=== PATIENT | female | born 1945 | race Caucasian/White ===

== ENCOUNTER 2018-01-24 08:23 | Outpatient (CLI) | payer MEDICARE, BC ==
--- NOTE | 2018-01-24 09:56 | CT ---
CT LUMBAR SPINE WITHOUT CONTRAST: History Low back pain for 1 week. COMPARISON: None. FINDINGS: The aortic contour is nonaneurysmal. No free fluid within the pelvis. No hydronephrosis. No retrop eritoneal adenopathy. Mild straightening of the lumbar spine. No acute fracture. No malalignment. Mild degenerative disease at SI joints. There is degenerative narrowing of L3-4, L4-5 intraspinous space with sclerosis of the cortices and s mall erosions. Levels are as follows: T12-l1: Mild facet arthrosis. Mild degenerative disk space height loss. Low-grade circumferential disk bulge. The spinal canal and neural foramen are patent. L2-3: Moderate degenerative disk space height loss. Mild ligamentum flavum hypertrophy. Circumfere ntial disk bulge as well as a superimposed right paracentral and subforaminal posterior disk-osteophy te complex. Moderate right and mild left neural foraminal narrowing. The spinal canal measures appr oximately 9 mm. L3-4: Moderate degenerative disk space height loss. Moderate facet arthrosis. Circumferential disk bulge with posterior disk-osteophyte complex. Moderate bilateral neural foraminal narrowing. Mild increased posterior dural fat. The spinal canal measures approximately 6 mm. L4-5: Moderate degenerative disk space height loss. Circumferential disk bulge. Ligamentum flavum hypertrophy. Moderate facet arthrosis. This causes moderate bilateral neural foraminal narrowing, w orse on the right. The spinal canal at this level measures approximately 7 mm. L5-S1: Severe degenerative disk space height loss. End plate sclerosis. Posterior disk-osteophyte complex. Moderate bilateral neural foraminal narrowing. IMPRESSION: Moderate spondylosis as described above, worse at L3-4, L4-5, and L5-S1. No acute fracture. No [place] lignment. POS: [facility]
== END 2018-01-24 08:24 | disposition home or self-care (01) ==
LOC: SCSCT 08:23
PROVIDERS: ATTEND Specialist
DX: M54.9 Dorsalgia, unspecified (principal); M47.896 Other spondylosis, lumbar region
CPT/HCPCS: 72131

== ENCOUNTER 2018-05-25 10:49 | Outpatient (CLI) | payer MEDICARE, BC | END 2018-05-25 10:50 | disposition home or self-care (01) | LOC: BICMAMMO 10:49 | PROVIDERS: ATTEND Specialist | DX: Z12.31 Encounter for screening mammogram for malignant neoplasm of breast (principal); Z13.820 Encounter for screening for osteoporosis; R92.1 Mammographic calcification found on diagnostic imaging of breast | CPT/HCPCS: 77063; 77067; 77080 ==

== ENCOUNTER 2018-08-30 10:29 | Outpatient (CLI) | payer MEDICARE, BC ==
--- NOTE | 2018-08-30 12:34 | RAD ---
LUMBAR SPINE THREE VIEWS: History: 73-year-old female with history of lumbar radiculopathy. M54.16 with low back pain radiating down rig ht leg. FINDINGS: Flexion, extension, and neutral upright lateral views of the lumbar spine is performed. There is gene ralized disc desiccation changes and disc osteophytosis, particularly at L3-4 and L5-S1. No abnormal translation between flexion and extension. No evidence for acute compression fracture. IMPRESSION: Lumbar spondylosis particularly at L3-4 and L5-S1. No abnormal translation. POS: [facility]
--- NOTE | 2018-08-30 12:38 | MRI ---
LUMBAR SPINE MRI WITHOUT IV CONTRAST: History: 73-year-old female with history of M54.16, lumbar radiculopathy, low back pain with radiation down ri ght leg. FINDINGS: There is a somewhat prominent heterogeneous appearance of the marrow, evidence for fairly extensive r ed marrow reconversion. The conus medullaris region is unremarkable terminating at L1-2. L1-2: There is disc desiccation change but no canal, lateral recess, or foraminal stenosis. L2-3: There is diffuse disc bulge with ligament and facet hypertrophic changes with moderate central canal and lateral recess stenosis and mild bilateral foraminal stenosis. L3-4: Moderate central canal and lateral recess stenosis and bilateral foraminal stenosis. L4-5: Moderate central canal and lateral recess stenosis and moderate left foraminal stenosis and mil d right foraminal stenosis. L5-S1: Prominent central protrusion with mild indention of the ventral thecal sac and mild to moderat e bilateral foraminal stenosis. 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 Multilevel variable sever ity canal, lateral recess and foraminal stenosis as above. Mild mix, including some type I endplate c hanges at L5-S1. POS: [facility]
== END 2018-08-30 10:30 | disposition home or self-care (01) ==
LOC: TBSIIMAG 10:29
PROVIDERS: ATTEND Neurological Surgery
DX: M47.26 Other spondylosis with radiculopathy, lumbar region (principal); M47.27 Other spondylosis with radiculopathy, lumbosacral region; M48.061 Spinal stenosis, lumbar region without neurogenic claudication; M99.83 Other biomechanical lesions of lumbar region
CPT/HCPCS: 72100; 72148

== ENCOUNTER 2020-08-09 15:42 | Outpatient (CLI) | payer MEDICARE, BC ==
--- NOTE | 2020-08-09 16:42 | MMO ---
Bilateral MAMMO Bilat Screen [facility]. CLINICAL HISTORY: Patient is 75 years old and is seen for screening. The patient has the following family history of breast cancer: maternal aunt, malignant (generic). The patient has no personal history of cancer. VIEWS: The views performed were: bilateral craniocaudal with tomosynthesis and bilateral mediolateral oblique with tomosynthesis. FILMS COMPARED: The present examination has been compared to prior imaging studies performed at [facility] on 01/11/2013, 01/25/2015, 02/27/2016 and 05/25/2018. This study has been interpreted with the assistance of computer-aided detection. MAMMOGRAM FINDINGS: There are scattered fibroglandular densities. Benign calcifications are noted bilaterally. There are no suspicious masses, suspicious calcifications, or new areas of architectural distortion. IMPRESSION: THERE IS NO MAMMOGRAPHIC EVIDENCE OF MALIGNANCY. A ROUTINE FOLLOW-UP MAMMOGRAM IN 1 YEAR IS RECOMMENDED. THE RESULTS OF THIS EXAM WERE SENT TO THE PATIENT. ACR BI-RADS Category 2 - Benign finding MAMMOGRAPHY NOTE: 1. A negative mammogram report should not delay a biopsy if a dominant of clinically suspicious mass is present. 2. Approximately 10% to 15% of breast cancers are not detected by mammography. 3. Adenosis and dense breasts may obscure an underlying neoplasm. Reported by: RICKI CISNEROS MD Electonically Signed: [id number]
== END 2020-08-09 15:43 | disposition home or self-care (01) ==
LOC: BICMAMMO 15:42
PROVIDERS: ATTEND Specialist
DX: Z12.31 Encounter for screening mammogram for malignant neoplasm of breast (principal); Z80.3 Family history of malignant neoplasm of breast
CPT/HCPCS: 77063; 77067

== ENCOUNTER 2020-09-11 12:27 | Outpatient (CLI) | payer MEDICARE, BC ==
--- NOTE | 2020-09-11 13:40 | ULT ---
SOFT TISSUE ULTRASOUND: 09/11/20 INDICATIONS: Prominence and tenderness at the xiphoid process of the sternum. FINDINGS/IMPRESSION: Directed ultrasound of this area is performed. No sonographic abnormality identified. The xiphoid pro cess is noted. This is tender to palpation. Recommend clinical correlation. If there is clinical conc heidy of abnormality at the xiphoid process, CT chest could be performed to further characterize. POS: [facility]
== END 2020-09-11 12:28 | disposition home or self-care (01) ==
LOC: BICULT 12:27
PROVIDERS: ATTEND Specialist
DX: R22.2 Localized swelling, mass and lump, trunk (principal)

== ENCOUNTER 2021-02-11 16:08 | Inpatient (IN) | payer MEDICARE, BC ==
[2021-02-11] MEDS ORDERED: Morphine 4 MG/ML VIAL ONE (17:09)
[2021-02-11] MEDS ORDERED: Ondansetron PF 4 MG/2 ML Vial ONE (17:09)
[2021-02-11 17:15] LABS: #Eosinphils 0.1 thou/uL (0.0-0.7); #Lymphocytes 0.9 thou/uL (1.20-3.40); #Monocytes 0.8 thou/uL (0.11-0.59); #Neutrophils 6.1 thou/uL (1.40-6.50); %Basophils 0.2 % (0.0-1.0); %Eosinophils 0.9 % (0.0-10.0); %Lymphocytes 11.2 % (21.0-51.0); %Monocytes 9.9 % (0.0-10.0); %Neutrophils 77.9 % (42.0-75.0); Hemoglobin 8.3 g/dL (12.0-16.0); Mean Corpuscular Hemoglobin 31.6 pg (27.0-31.0); Mean Corpuscular Volume 95.8 fL (78.0-98.0); Mean Platelet Volume 8.8 fL (7.4-10.4); Platelet Count 212 thou/uL (130-400); RBC Distribution Width 12.1 % (11.5-14.5); Red Blood Cell (RBC) Count 2.63 mill/uL (4.20-5.40); White Blood Cell (WBC) Count 7.8 thou/uL (4.8-10.8)
[2021-02-11 17:28] LABS: ALT (SGPT) 18 U/L (8-55); AST (SGOT) 35 U/L (5-34); Albumin 3.9 g/dL (3.4-4.8); Alkaline Phosphatase 90 U/L (40-110); Anion Gap 15 mmol/L (10-20); BUN (Urea Nitrogen) 25 mg/dL (9.8-20.1); Bilirubin, Total 0.4 mg/dL (0.2-1.2); Calc. Creatinine Clearance 0 mL/min (70-130); Carbon Dioxide 24 mmol/L (23-31); Chloride 90 mmol/L (98-107); Globulin 2.7 g/dL (2.4-3.5); Glucose 139 mg/dL (83-110); Lipase 6 U/L (8-78); Potassium 3.2 mmol/L (3.5-5.1); Protein, Total 6.6 g/dL (5.8-8.1); Sodium 126 mmol/L (136-145)
[2021-02-11 19:31] LABS: Bilirubin Negative (Negative); Blood, Urine Negative (Negative); Clarity Turbid (Clear); Glucose, Urine (Dipstick) Normal (Negative); Ketone, Urine Negative (Negative); Leukocyte 500 Leu/uL (Negative); Nitrite Negative (Negative); Protein, Urine (Dipstick) 30 mg/dL (Neg-Trace); RBC/HPF 0-3 HPF (0-3); Specific Gravity, Urine 1.014 (1.002-1.036); Squamous Epithelial 0-3 HPF (0-3); Urobilinogen Normal mg/dL (Less than 2); WBC/HPF Greater than 50 HPF (0-3)
[2021-02-11 19:32] LABS: Bacteria/HPF 1+ HPF (None Seen)
[2021-02-12] MEDS ORDERED: Potassium Chloride 20 MEQ TAB ONE (05:43)
[2021-02-12] MEDS ORDERED: Acetaminophen 500 MG TAB ONE (05:46)
[2021-02-12] MEDS ORDERED: cloNIDine 0.1 MG TAB PO PRN (05:48)
[2021-02-12] MEDS ORDERED: NS 0.9% w/ 20 MEQ KCL 1,000 ML IV SCH (06:00)
[2021-02-12] MEDS ORDERED: NS 0.9% w/ 20 MEQ KCL 1,000 ML ONE (06:07)
[2021-02-12 06:23] LABS: ALT (SGPT) 15 U/L (8-55); AST (SGOT) 25 U/L (5-34); Albumin 3.3 g/dL (3.4-4.8); Alkaline Phosphatase 80 U/L (40-110); Anion Gap 13 mmol/L (10-20); BUN (Urea Nitrogen) 20 mg/dL (9.8-20.1); Bilirubin, Total 0.5 mg/dL (0.2-1.2); Calc. Creatinine Clearance 0 mL/min (70-130); Calcium 9.4 mg/dL (7.8-10.44); Carbon Dioxide 23 mmol/L (23-31); Chloride 100 mmol/L (98-107); Globulin 2.2 g/dL (2.4-3.5); Glucose 104 mg/dL (83-110); Potassium 2.8 mmol/L (3.5-5.1); Protein, Total 5.5 g/dL (5.8-8.1); Sodium 133 mmol/L (136-145)
[2021-02-12] MEDS: Potassium Chloride 20 MEQ TAB PO SCH ×2 (06:40→16:19)
[2021-02-12 09:16] LABS: Cardiac Risk 3.6 (Less than 4.5)
[2021-02-12] MEDS ORDERED: cefTRIAXone\\ROCEPHIN 1 GM VIAL ONE (09:29)
[2021-02-12] MEDS: cefTRIAXone\\ROCEPHIN 1 GM in Sodium Chloride 0.9% 100 ML IVPB SCH (09:46)
[2021-02-12] MEDS: Potassium Chloride 20 MEQ in Sodium Chloride 0.45% 1,000 ML IV SCH ×2 (10:21→16:19)
[2021-02-12] MEDS: Ondansetron PF 4 MG/2 ML Vial IVP SCH ×2 (11:16→17:47)
[2021-02-12] MEDS ORDERED: Ondansetron PF 4 MG/2 ML Vial ONE (11:17)
[2021-02-13] MEDS: Potassium Chloride 20 MEQ in Sodium Chloride 0.45% 1,000 ML IV SCH ×3 (00:11→17:22)
[2021-02-13] MEDS: Ondansetron PF 4 MG/2 ML Vial IVP SCH ×6 (00:28→23:43)
[2021-02-13] MEDS: Potassium Chloride 20 MEQ TAB PO SCH ×2 (08:20→18:40)
[2021-02-13] MEDS: cefTRIAXone\\ROCEPHIN 1 GM in Sodium Chloride 0.9% 100 ML IVPB SCH (08:21)
[2021-02-13 08:55] LABS: #Eosinphils 0.1 thou/uL (0.0-0.7); #Lymphocytes 1.2 thou/uL (1.20-3.40); #Monocytes 0.7 thou/uL (0.11-0.59); %Basophils 0.7 % (0.0-1.0); %Eosinophils 1.6 % (0.0-10.0); %Lymphocytes 20.2 % (21.0-51.0); %Monocytes 11.4 % (0.0-10.0); %Neutrophils 66.2 % (42.0-75.0); Hemoglobin 7.1 g/dL (12.0-16.0); Mean Corpuscular HGB CONC 33.2 g/dL (32.0-36.0); Mean Corpuscular Hemoglobin 32.6 pg (27.0-31.0); Mean Corpuscular Volume 98.2 fL (78.0-98.0); Mean Platelet Volume 8.3 fL (7.4-10.4); Platelet Count 165 thou/uL (130-400); RBC Distribution Width 12.3 % (11.5-14.5); Red Blood Cell (RBC) Count 2.18 mill/uL (4.20-5.40); White Blood Cell (WBC) Count 6.1 thou/uL (4.8-10.8)
[2021-02-13 09:14] LABS: Anion Gap 12 mmol/L (10-20); BUN (Urea Nitrogen) 13 mg/dL (9.8-20.1); Calc. Creatinine Clearance 29 mL/min (70-130); Calcium 8.4 mg/dL (7.8-10.44); Carbon Dioxide 20 mmol/L (23-31); Chloride 107 mmol/L (98-107); Glucose 80 mg/dL (83-110); Potassium 3.7 mmol/L (3.5-5.1); Sodium 135 mmol/L (136-145)
[2021-02-13] MEDS: 1/2 NS w/KCL 20 mEq 1,000 ML IV SCH (22:36)
[2021-02-14] MEDS: 1/2 NS w/KCL 20 mEq 1,000 ML IV SCH ×3 (05:44→22:25)
[2021-02-14 08:35] LABS: #Basophils 0.1 thou/uL (0.0-0.2); #Eosinphils 0.2 thou/uL (0.0-0.7); #Lymphocytes 1.1 thou/uL (1.20-3.40); #Monocytes 0.7 thou/uL (0.11-0.59); #Neutrophils 4.4 thou/uL (1.40-6.50); %Basophils 1.2 % (0.0-1.0); %Eosinophils 2.8 % (0.0-10.0); %Lymphocytes 17.5 % (21.0-51.0); %Monocytes 10.2 % (0.0-10.0); %Neutrophils 68.3 % (42.0-75.0); Hemoglobin 9.4 g/dL (12.0-16.0); Mean Corpuscular Volume 90.7 fL (78.0-98.0); Mean Platelet Volume 8.6 fL (7.4-10.4); Platelet Count 147 thou/uL (130-400); RBC Distribution Width 19.5 % (11.5-14.5); Red Blood Cell (RBC) Count 3.13 mill/uL (4.20-5.40); White Blood Cell (WBC) Count 6.5 thou/uL (4.8-10.8)
[2021-02-14] MEDS: cloNIDine 0.1 MG TAB PO PRN (08:44)
[2021-02-14] MEDS: Potassium Chloride 20 MEQ TAB PO SCH ×2 (08:44→16:35)
[2021-02-14 08:49] LABS: Anion Gap 13 mmol/L (10-20); BUN (Urea Nitrogen) 10 mg/dL (9.8-20.1); Calc. Creatinine Clearance 30 mL/min (70-130); Calcium 8.6 mg/dL (7.8-10.44); Carbon Dioxide 18 mmol/L (23-31); Chloride 111 mmol/L (98-107); Glucose 81 mg/dL (83-110); Potassium 4.1 mmol/L (3.5-5.1); Sodium 138 mmol/L (136-145)
[2021-02-14] MEDS: Ondansetron PF 4 MG/2 ML Vial IVP SCH ×2 (11:53→16:43)
[2021-02-14] MEDS: cefTRIAXone\\ROCEPHIN 1 GM in Sodium Chloride 0.9% 100 ML IVPB SCH (11:54)
[2021-02-14] MEDS: hydrALAZINE 25 MG TAB PO SCH ×2 (15:10→21:56)
[2021-02-14] MEDS: Carvedilol 6.25 MG TAB PO SCH (16:35)
[2021-02-14] MEDS ORDERED: GoLYTELY 4,000 ml Bottle PO SCH (22:00)
[2021-02-15] MEDS: cloNIDine 0.1 MG TAB PO PRN ×3 (00:20→12:03)
[2021-02-15] MEDS: Ondansetron PF 4 MG/2 ML Vial IVP SCH ×3 (01:13→12:05)
[2021-02-15] MEDS: hydrALAZINE 25 MG TAB PO SCH ×4 (05:12→21:27)
[2021-02-15 05:21] LABS: SARS-CoV-2 NAA Rapid Test Not Detected (NotDetected)
[2021-02-15] MEDS: 1/2 NS w/KCL 20 mEq 1,000 ML IV SCH ×2 (05:26→15:22)
[2021-02-15 06:21] LABS: #Basophils 0.1 thou/uL (0.0-0.2); #Eosinphils 0.2 thou/uL (0.0-0.7); #Lymphocytes 1.3 thou/uL (1.20-3.40); #Monocytes 0.8 thou/uL (0.11-0.59); #Neutrophils 5.1 thou/uL (1.40-6.50); %Basophils 1.1 % (0.0-1.0); %Eosinophils 2.8 % (0.0-10.0); %Lymphocytes 16.6 % (21.0-51.0); %Monocytes 11.2 % (0.0-10.0); %Neutrophils 68.4 % (42.0-75.0); Hemoglobin 9.3 g/dL (12.0-16.0); Mean Corpuscular HGB CONC 32.3 g/dL (32.0-36.0); Mean Corpuscular Hemoglobin 29.2 pg (27.0-31.0); Mean Corpuscular Volume 90.3 fL (78.0-98.0); Mean Platelet Volume 8.8 fL (7.4-10.4); Platelet Count 157 thou/uL (130-400); Red Blood Cell (RBC) Count 3.18 mill/uL (4.20-5.40); White Blood Cell (WBC) Count 7.5 thou/uL (4.8-10.8)
[2021-02-15 06:41] LABS: Anion Gap 14 mmol/L (10-20); BUN (Urea Nitrogen) 10 mg/dL (9.8-20.1); Calc. Creatinine Clearance 33 mL/min (70-130); Calcium 8.2 mg/dL (7.8-10.44); Carbon Dioxide 17 mmol/L (23-31); Chloride 109 mmol/L (98-107); Glucose 76 mg/dL (83-110); Potassium 3.8 mmol/L (3.5-5.1); Sodium 136 mmol/L (136-145)
[2021-02-15] MEDS: Carvedilol 6.25 MG TAB PO SCH ×2 (07:59→16:57)
[2021-02-15] MEDS: cefTRIAXone\\ROCEPHIN 1 GM in Sodium Chloride 0.9% 100 ML IVPB SCH (09:18)
[2021-02-15] MEDS: Potassium Chloride 20 MEQ TAB PO SCH ×2 (09:27→12:04)
[2021-02-15] MEDS ORDERED: PROPOFOL 200 MG/20 ML VIAL ONE (10:21)
[2021-02-15] MEDS ORDERED: Promethazine HCl 25 MG/ML VIAL SLOW IVP PRN (10:48)
[2021-02-15] MEDS ORDERED: Promethazine HCl 25 MG/ML VIAL IM PRN (10:48)
[2021-02-15] MEDS ORDERED: Ondansetron HCl/PF 4 MG/2 ML Vial IVP PRN (10:48)
[2021-02-15] MEDS ORDERED: Fentanyl 100 MCG/2 ML VIAL ONE (11:21)
[2021-02-15] MEDS ORDERED: Terazosin HCl 1 MG CAP PO SCH (16:30)
[2021-02-15 17:07] VITALS: BMI 29.2
[2021-02-16 05:52] LABS: #Eosinphils 0.3 thou/uL (0.0-0.7); #Monocytes 0.5 thou/uL (0.11-0.59); #Neutrophils 5.1 thou/uL (1.40-6.50); %Basophils 0.6 % (0.0-1.0); %Lymphocytes 14.2 % (21.0-51.0); %Monocytes 7.4 % (0.0-10.0); %Neutrophils 73.8 % (42.0-75.0); Hemoglobin 9.4 g/dL (12.0-16.0); Mean Corpuscular HGB CONC 31.5 g/dL (32.0-36.0); Mean Corpuscular Hemoglobin 28.6 pg (27.0-31.0); Mean Corpuscular Volume 90.8 fL (78.0-98.0); Mean Platelet Volume 8.6 fL (7.4-10.4); Platelet Count 154 thou/uL (130-400); RBC Distribution Width 18.9 % (11.5-14.5)
[2021-02-16 06:17] LABS: Anion Gap 16 mmol/L (10-20); BUN (Urea Nitrogen) 16 mg/dL (9.8-20.1); Calc. Creatinine Clearance 40 mL/min (70-130); Calcium 8.1 mg/dL (7.8-10.44); Carbon Dioxide 15 mmol/L (23-31); Chloride 108 mmol/L (98-107); Glucose 80 mg/dL (83-110); Potassium 3.8 mmol/L (3.5-5.1); Sodium 135 mmol/L (136-145)
[2021-02-16] MEDS: cefTRIAXone\\ROCEPHIN 1 GM in Sodium Chloride 0.9% 100 ML IVPB SCH (08:23)
[2021-02-16] MEDS: Carvedilol 6.25 MG TAB PO SCH ×2 (08:24→17:42)
[2021-02-16] MEDS: hydrALAZINE 25 MG TAB PO SCH ×4 (08:25→20:08)
[2021-02-16] MEDS ORDERED: Loperamide HCl 2 MG CAP PO PRN (13:18)
[2021-02-16] MEDS ORDERED: Loperamide HCl 2 MG CAP PO SCH (13:45)
[2021-02-16] MEDS ORDERED: Cipro 250 MG TAB PO SCH (14:00)
[2021-02-17 06:27] LABS: #Eosinphils 0.2 thou/uL (0.0-0.7); #Monocytes 0.7 thou/uL (0.11-0.59); #Neutrophils 3.4 thou/uL (1.40-6.50); %Basophils 0.6 % (0.0-1.0); %Eosinophils 3.7 % (0.0-10.0); %Lymphocytes 17.9 % (21.0-51.0); %Monocytes 13.8 % (0.0-10.0); %Neutrophils 63.9 % (42.0-75.0); Hemoglobin 9.4 g/dL (12.0-16.0); Mean Corpuscular HGB CONC 32.6 g/dL (32.0-36.0); Mean Corpuscular Hemoglobin 29.4 pg (27.0-31.0); Mean Corpuscular Volume 90.2 fL (78.0-98.0); Mean Platelet Volume 8.9 fL (7.4-10.4); Platelet Count 170 thou/uL (130-400); RBC Distribution Width 18.5 % (11.5-14.5); White Blood Cell (WBC) Count 5.3 thou/uL (4.8-10.8)
[2021-02-17 06:46] LABS: Anion Gap 13 mmol/L (10-20); BUN (Urea Nitrogen) 14 mg/dL (9.8-20.1); Calc. Creatinine Clearance 42 mL/min (70-130); Carbon Dioxide 19 mmol/L (23-31); Chloride 110 mmol/L (98-107); Potassium 3.4 mmol/L (3.5-5.1); Sodium 139 mmol/L (136-145)
[2021-02-17 06:47] LABS: Calcium 7.9 mg/dL (7.8-10.44); Glucose 88 mg/dL (83-110)
[2021-02-17 07:32] VITALS: TEMP 97.8
[2021-02-17] MEDS: Carvedilol 6.25 MG TAB PO SCH (07:56)
[2021-02-17] MEDS: hydrALAZINE 25 MG TAB PO SCH (07:56)
[2021-02-17 07:58] VITALS: BP 169/75
[2021-02-21 10:17] LABS: Norovirus GI Negative (Negative); Norovirus GII Negative (Negative)
== END 2021-02-17 11:14 | disposition home or self-care (01) | DRG 683 ==
LOC: ERS 16:08 → ERHOLD 18:09 → T4-A 02-12 12:40 → OBSVTOIN 02-13 07:10
PROVIDERS: ADMIT Specialist; ATTEND Specialist
PROC: 30233N1 Transfusion of Nonautologous Red Blood Cells into Peripheral Vein, Percutaneous Approach (ICD-10-PCS; 2021-02-12)
PROC: 0DB98ZX Excision of Duodenum, Via Natural or Artificial Opening Endoscopic, Diagnostic (ICD-10-PCS; principal; 2021-02-15)
PROC: 0DB78ZX Excision of Stomach, Pylorus, Via Natural or Artificial Opening Endoscopic, Diagnostic (ICD-10-PCS; 2021-02-15)
PROC: 0DBG8ZX Excision of Left Large Intestine, Via Natural or Artificial Opening Endoscopic, Diagnostic (ICD-10-PCS; 2021-02-15)
PROC: 0DBF8ZX Excision of Right Large Intestine, Via Natural or Artificial Opening Endoscopic, Diagnostic (ICD-10-PCS; 2021-02-15)
DX: N17.9 Acute kidney failure, unspecified (principal); N39.0 Urinary tract infection, site not specified; E87.1 Hypo-osmolality and hyponatremia; E86.0 Dehydration; I10 Essential (primary) hypertension; E78.5 Hyperlipidemia, unspecified; M81.0 Age-related osteoporosis without current pathological fracture; D64.9 Anemia, unspecified; I08.1 Rheumatic disorders of both mitral and tricuspid valves; E87.6 Hypokalemia; K29.70 Gastritis, unspecified, without bleeding; K29.80 Duodenitis without bleeding; K63.89 Other specified diseases of intestine; K57.30 Diverticulosis of large intestine without perforation or abscess without bleeding; Z79.82 Long term (current) use of aspirin
CPT/HCPCS: 36415; 36430; 74176; 76856; 80048; 80053; 80061; 81003; 81015; 82274; 83630; 83690; 85025; 86850; 86900; 86901; 87045; 87046; 87324; 87427; 87449; 87798; 88305; 93005; 93306; 96374; 96375; 96376; G0378; J0696; J2270; J2405; J2704; J3010; J3480; J3490; P9016; U0002

== ENCOUNTER 2021-07-31 15:04 | Outpatient (CLI) | payer MEDICARE, BC | END 2021-07-31 15:05 | disposition home or self-care (01) | LOC: BICRAD 15:04 | PROVIDERS: ATTEND Specialist | DX: M54.50 Low back pain, unspecified (principal); M47.816 Spondylosis without myelopathy or radiculopathy, lumbar region | CPT/HCPCS: 72100 ==

== ENCOUNTER 2021-08-18 14:36 | Outpatient (CLI) | payer MEDICARE, BC | END 2021-08-18 14:37 | disposition home or self-care (01) | LOC: BICMAMMO 14:36 | PROVIDERS: ATTEND Specialist | DX: Z12.31 Encounter for screening mammogram for malignant neoplasm of breast (principal) | CPT/HCPCS: 77063; 77067 ==

== ENCOUNTER 2021-12-12 12:26 | Outpatient (CLI) | payer MEDICARE, BC | END 2021-12-12 12:27 | disposition home or self-care (01) | LOC: BICULT 12:26 | PROVIDERS: ATTEND Internal Medicine Nephrology | DX: N18.30 Chronic kidney disease, stage 3 unspecified (principal) | CPT/HCPCS: 76770 ==

== ENCOUNTER 2021-12-27 15:50 | Emergency (ER) | payer MEDICARE, BC ==
[2021-12-27 16:45] LABS: #Basophils 0.1 thou/uL (0.0-0.2); #Eosinphils 0.2 thou/uL (0.0-0.7); #Lymphocytes 1.3 thou/uL (1.20-3.40); #Monocytes 0.7 thou/uL (0.11-0.59); #Neutrophils 3.8 thou/uL (1.40-6.50); %Eosinophils 3.2 % (0.0-10.0); %Lymphocytes 21.9 % (21.0-51.0); %Neutrophils 62.9 % (42.0-75.0); Hemoglobin 7.9 g/dL (12.0-16.0); Mean Corpuscular HGB CONC 32.2 g/dL (32.0-36.0); Mean Corpuscular Hemoglobin 34.3 pg (27.0-31.0); Mean Platelet Volume 7.7 fL (7.4-10.4); Platelet Count 206 thou/uL (130-400); RBC Distribution Width 12.5 % (11.5-14.5)
[2021-12-27 16:58] LABS: MDiff Complete? YES; Macrocytosis SLIGHT = 6-15 cells (100X) (0-5/hpf); Platelet Morphology Comment Appears Adequate; Polychromasia SLIGHT = 2-3 cells (100X) (0-2/hpf)
[2021-12-27 17:03] LABS: ALT (SGPT) 36 U/L (8-55); AST (SGOT) 30 U/L (5-34); Alkaline Phosphatase 115 U/L (40-110); Anion Gap 14 mmol/L (10-20); BUN (Urea Nitrogen) 43 mg/dL (9.8-20.1); Bilirubin, Total 0.4 mg/dL (0.2-1.2); Calc. Creatinine Clearance 0 mL/min (70-130); Calcium 9.7 mg/dL (7.8-10.44); Carbon Dioxide 25 mmol/L (23-31); Chloride 106 mmol/L (98-107); Globulin 2.3 g/dL (2.4-3.5); Glucose 130 mg/dL (83-110); Potassium 4.7 mmol/L (3.5-5.1); Protein, Total 6.3 g/dL (5.8-8.1); Sodium 140 mmol/L (136-145)
[2021-12-27 17:11] LABS: Bacteria/HPF None Seen HPF (None Seen); Bilirubin Negative (Negative); Blood, Urine Negative (Negative); Clarity Clear (Clear); Glucose, Urine (Dipstick) Normal (Negative); Ketone, Urine Negative (Negative); Leukocyte 75 Leu/uL (Negative); Nitrite Negative (Negative); Protein, Urine (Dipstick) Negative (Neg-Trace); RBC/HPF 0-3 HPF (0-3); Specific Gravity, Urine 1.006 (1.002-1.036); Squamous Epithelial 0-3 HPF (0-3); Urobilinogen Normal mg/dL (Less than 2)
[2021-12-27] MEDS ORDERED: cefTRIAXone\\ROCEPHIN 1 GM VIAL ONE (17:44)
== END 2021-12-27 22:31 | disposition home or self-care (01) ==
LOC: ERS 15:50
DX: D64.9 Anemia, unspecified (principal); N39.0 Urinary tract infection, site not specified; E78.5 Hyperlipidemia, unspecified; I10 Essential (primary) hypertension; Z79.899 Other long term (current) drug therapy; Z79.82 Long term (current) use of aspirin
CPT/HCPCS: 36415; 80053; 81003; 81015; 83605; 83880; 84484; 85025; 86850; 86900; 86901; 87086; 93005; 96365; J0696

== ENCOUNTER 2023-02-01 12:05 | Outpatient (CLI) | payer MEDICARE, BC | END 2023-02-01 12:06 | disposition home or self-care (01) | LOC: BICMAMMO 12:05 | PROVIDERS: ATTEND Specialist | DX: Z12.31 Encounter for screening mammogram for malignant neoplasm of breast (principal) | CPT/HCPCS: 77063; 77067 ==

== ENCOUNTER 2025-06-14 14:39 | Outpatient (CLI) | payer MEDICARE | END 2025-06-14 14:40 | disposition home or self-care (01) | LOC: BICMRI 14:39 | DX: R41.3 Other amnesia (principal); G93.89 Other specified disorders of brain; G31.9 Degenerative disease of nervous system, unspecified | CPT/HCPCS: 70551 ==